=== PATIENT | male | born 1975 | race Caucasian/White ===

== ENCOUNTER 2016-12-23 21:23 | Emergency (ER) | payer SELFPAY ==
[2016-12-23 21:27] VITALS: BP 142/80; PULSE 105; TEMP 98.5; BMI 22.8
--- NOTE | 2016-12-24 00:40 | PDOC ---
History of Present Illness - History of Present Illness Initial Comments: 12/24/16 01:49 Patient is a 41 year old male with significant PMHx of smoking (over 30 years), who presents to the emergency department complaining of SOB for 1 month. He reports that he quit smoking 1 month ago when his dyspnea began. He denies taking medication, allergies to meds, denies past surgeries. He states that he felt better two weeks ago. He reports feeling short of breath yesterday after waking up. He recently started a new job and reported that symptoms worsen when he walks to work. He states that when he was walking to work yesterday his vision started to blur after walking 2 blocks and he had to call a cab. He noted that this happened again today and was very concerned so he came to the ER. He also reports a possible mold problem in his apartment building. He reports associated cough and chills that began today. He denies PMHx of asthma, past surgeries, denies allergies to meds. Social history: Quit smoking (1 month ago).. Denies EtOH use and recreational drug use. Primary Care Physician: none <Marsha Porter - Last Filed: 12/24/16 01:53> <Sandi Jaquez - Last Filed: 12/24/16 02:47> - General Chief Complaint: Respiratory Stated Complaint: DIFF. BREATHING Time Seen by Provider: 12/24/16 00:39 Past History <Marsha Porter - Last Filed: 12/24/16 01:53> - Suicide/Smoking/Psychosocial Hx Smoking History: Former smoker Have you smoked in the past 12 months: Yes If you are a former smoker, when did you quit?: 1 month Information on smoking cessation initiated: No Hx Alcohol Use: No Drug/Substance Use Hx: No <Sandi Jaquez - Last Filed: 12/24/16 02:47> - Past Medical History Allergies/Adverse Reactions: Allergies Allergy/AdvReac Type Severity Reaction Status Date / Time No Known Allergies Allergy Verified 12/23/16 21:27 Home Medications: Ambulatory Orders Albuterol Sulfate Inhaler - [Ventolin Hfa Inhaler -] 1 - 2 inh PO Q4H #1 inhaler 12/24/16 Methylprednisolone [Medrol Dose Steve] 4 mg PO ASDIR #21 tablet 09/27/17 Review of Systems - Review of Systems Comments:: 12/24/16 01:49 CONSTITUTIONAL: Present: + chills Absent: fever, no fatigue EYES: Absent: visual changes ENT: Absent: ear pain, no sore throat CARDIOVASCULAR: Absent: chest pain, no palpitations RESPIRATORY: Present: +SOB, +cough GI: Absent: abdominal pain, no nausea, no vomiting, no constipation, no diarrhea GENITOURINARY: Absent: dysuria, no frequency, no hematuria MUSCULOSKELETAL: Absent: back pain, no arthralgia, no myalgia SKIN: Absent: rash NEURO: Absent: headache <Marsha Porter - Last Filed: 12/24/16 01:53> *Physical Exam - Vital Signs Last Vital Signs Temp Pulse Resp BP Pulse Ox 98.5 F 105 H 20 142/80 96 12/23/16 21:24 12/23/16 21:24 12/23/16 21:24 12/23/16 21:24 12/23/16 21:24 - Physical Exam Comments: 12/24/16 01:55 GENERAL: Well-appearing, well-nourished. No apparent distress. HEENT: Normocephalic, atraumatic. PERRL, EOM intact. CARDIOVASCULAR: +Slightly tachycardia. PULMONARY: +Scattered wheezing in all lung worthy ABDOMEN: Soft, non-distended, non-tender. EXTREMITIES: Normal ROM in all four extremities. No gross deformities. SKIN: Warm, dry. No rash NEUROLOGICAL: No focal neurological deficits. <Marsha Porter - Last Filed: 12/24/16 01:53> - Vital Signs Last Vital Signs Temp Pulse Resp BP Pulse Ox 98.5 F 105 H 20 142/80 96 12/23/16 21:24 12/23/16 21:24 12/23/16 21:24 12/23/16 21:24 12/23/16 21:24 <Sandi Jaquez - Last Filed: 12/24/16 02:47> ED Treatment Course - Medications Given in the ED: ED Medications Discontinued Medications Generic Name Dose Route Start Last Admin Trade Name Freq PRN Reason Stop Dose Admin Albuterol/Ipratropium 1 amp 12/24/16 00:58 12/24/16 01:00 Duoneb - NEB 12/24/16 00:59 1 amp ONCE STA Administration Albuterol/Ipratropium 1 amp 12/24/16 00:58 12/24/16 01:28 Duoneb - NEB 12/24/16 00:59 1 amp ONCE ONE Administration Prednisone 60 mg 12/24/16 00:58 12/24/16 01:28 Deltasone - PO 12/24/16 00:59 60 mg ONCE ONE Administration <Marsha Porter - Last Filed: 12/24/16 01:53> Medical Decision Making - Medical Decision Making 12/24/16 02:41 41 yo male has had cough and shortness of breath for past month/27 yo history of tobacco use and recently stopped cigarette smoking -cxr no infiltrates,no ptx,no effusions pt;s symptoms improved and his wheezing resolved RX e prescribed to [facility] pharmacy <Sandi Jaquez - Last Filed: 12/24/16 02:47> *DC/Admit/Observation/Transfer - Attestations Scribe Attestion: 12/24/16 01:57 Documentation prepared by Marsha Porter, acting as medical claims manager for Sandi Jaquez MD. <Marsha Porter - Last Filed: 12/24/16 01:53> <Sandi Jaquez - Last Filed: 12/24/16 02:47> Diagnosis at time of Disposition: Cough, Wheezing - Discharge Dispostion Disposition: HOME Condition at time of disposition: Stable - Prescriptions Prescriptions: Methylprednisolone [Medrol Dose Steve] 4 mg PO ASDIR #21 tablet Albuterol Sulfate Inhaler - [Ventolin Hfa Inhaler -] 1 - 2 inh PO Q4H #1 inhaler - Patient Instructions Printed Discharge Instructions: DI for Asthma -- Adult Additional Instructions: please berry picker your medications at [facility] Return for worsening symptoms
[2016-12-24] MEDS ORDERED: predniSONE 20 MG TABLET (UD) PO ONE (00:58)
[2016-12-24] MEDS ORDERED: ALBUTEROL SO4 2.5/IPRATROPIUM 0.5 INH SOL 3 ML VIAL.NEB. NEB STA (00:58)
[2016-12-24] MEDS ORDERED: ALBUTEROL SO4 2.5/IPRATROPIUM 0.5 INH SOL 3 ML VIAL.NEB. NEB ONE ×2 (00:58→01:19)
[2016-12-24] MEDS ORDERED: predniSONE 20 MG TABLET (UD) ONE (01:19)
== END 2016-12-24 02:55 | disposition home or self-care (01) ==
LOC: JER 21:23
PROC: 3E0F7GC Introduction of Other Therapeutic Substance into Respiratory Tract, Via Natural or Artificial Opening (ICD-10-PCS; principal; 2016-12-23)
PROC: 3E0F7GC Introduction of Other Therapeutic Substance into Respiratory Tract, Via Natural or Artificial Opening (ICD-10-PCS; 2016-12-23)
DX: R05 Cough (principal); R06.2 Wheezing; Z87.891 Personal history of nicotine dependence
CPT/HCPCS: 71020-TC; 99282-25